=== PATIENT | female | born 1975 | race Caucasian/White ===

== ENCOUNTER 2017-01-29 10:33 | Emergency (ER) | payer SELFPAY ==
[~2017-01-29] VITALS: Ht 165.1 cm; Wt 90.4 kg
[~2017-01-29 10:33] MED LIST: AMOXICILLIN500 M1 PO; CITALOPRAM HBR20 MG PO; ENDOCET 5-3251 EACH PO; ESTRADIOL1 MG PO; HYDROXYZINE PAM25 MG PO; IBUPROFEN800 MG; MOTRIN600 MG PO; MOTRIN800 MG PO; NAPROSYN500 MG PO; NOHOMEMEDS; PERCOCET 5/31 TABLET PO; PROAIR HFA8.5 GM IH; PROVERA2.5 MG PO; TYLENOL WITH C1 EACH PO
[2017-01-29] MEDS ORDERED: ZITHROMAX Z-PA250 MG PO (12:19)
[2017-01-29] MEDS ORDERED: VENTOLIN HFA18 GM IH (12:19)
[2017-01-29] MEDS ORDERED: PREDNISONE20 MG PO (12:19)
[2017-01-29 13:23] VITALS: BP 134/66
== END 2017-01-29 13:24 | disposition home or self-care (01) ==
LOC: EME 10:33
DX: J18.9 Pneumonia, unspecified organism (principal); R06.2 Wheezing; F17.200 Nicotine dependence, unspecified, uncomplicated; Z91.013 Allergy to seafood; J45.909 Unspecified asthma, uncomplicated; Z80.8 Family history of malignant neoplasm of other organs or systems; Z82.49 Family history of ischemic heart disease and other diseases of the circulatory system; Z91.018 Allergy to other foods
CPT/HCPCS: 71020; 94640; 99281; 99283; J7512

== ENCOUNTER 2017-05-18 11:52 | Emergency (ER) | payer SELFPAY ==
[~2017-05-18] VITALS: Ht 165.1 cm; Wt 87.9 kg
[~2017-05-18 11:52] MED LIST changes: +PREDNISONE20 MG PO; +VENTOLIN HFA18 GM IH; +ZITHROMAX Z-PA250 MG PO
[2017-05-18 12:32] LABS: HEMATOCRIT 43.7 % (36.0-46.0); MCH 30.9 PG (29.0-34.0); MCHC 34.6 G/DL (30.0-36.0); MCV 89.4 FL (83-99); MEAN PLAT.VOLUME 10.2 uM^3 (9.5-12.4); PLATELET COUNT 323 K/uL (156-360); RBC DIS.WIDTH-CV 12.7 % (11.8-14.6); RBC DIS.WIDTH-SD 41.6 % (39-53); RED BLOOD COUNT 4.89 M/uL (3.80-5.20)
[2017-05-18 12:48] LABS: CHLORIDE 108 mEq/L (99-109); POTASSIUM 3.8 mEq/L (3.7-5.4); SODIUM 141 mEq/L (136-147)
[2017-05-18 12:50] LABS: GLUCOSE 111 mg/dL (70-99)
[2017-05-18 12:52] LABS: ANION GAP 10 MEQ/L (2-14)
[2017-05-18 12:54] LABS: GFR ESTIMATE (CALCULATED) > 59 mL/min/
[2017-05-18 12:55] LABS: UREA NITROGEN (BUN) 5 mg/dL (9-23)
[2017-05-18] MEDS ORDERED: ZITHROMAX Z-PA250 MG PO (14:28)
[2017-05-18] MEDS ORDERED: VENTOLIN HFA18 GM IH (14:28)
[2017-05-18 14:45] VITALS: BP 119/82
== END 2017-05-18 14:46 | disposition home or self-care (01) ==
LOC: EME 11:52
DX: J18.9 Pneumonia, unspecified organism (principal); J02.9 Acute pharyngitis, unspecified; Z90.710 Acquired absence of both cervix and uterus; F17.200 Nicotine dependence, unspecified, uncomplicated
CPT/HCPCS: 71020; 80048; 85027; 93005; 94640; 99281; 99284

== ENCOUNTER → 2017-05-30 | Outpatient (CLI) | payer SELFPAY | END | disposition home or self-care (01) | LOC: RAD 13:44 | DX: R22.2 Localized swelling, mass and lump, trunk (principal); Z87.01 Personal history of pneumonia (recurrent) | CPT/HCPCS: 71260; 76604 ==